=== PATIENT | female | born 1995 | race Caucasian/White ===

== ENCOUNTER 2022-03-14 10:00 | Emergency (ER) | payer OTHER ==
[~2022-03-14] VITALS: Ht 177.8 cm; Wt 117.9 kg
[2022-03-14] MEDS ORDERED: NAPROXEN250 MG PO (11:22)
[2022-03-14] MEDS ORDERED: TYLENOL325 M1 PO (11:22)
== END 2022-03-14 11:36 | disposition home or self-care (01) ==
LOC: ED 10:00
DX: J06.9 Acute upper respiratory infection, unspecified (principal); Z20.822 Contact with and (suspected) exposure to COVID-19